=== PATIENT | female | born 1985 | race Hispanic/Latino ===

== ENCOUNTER 2017-03-10 12:07 | Emergency (ER) | payer BC ==
[2017-03-10 12:17] VITALS: BMI 17.6
[2017-03-10 12:24] VITALS: BP 113/74; PULSE 60; RESP 18; TEMP 98.2; O2SAT 99
--- NOTE | 2017-03-10 12:51 | C.PDOC ---
History Of Present Illness 32 y/o female presents to the ED for evaluation after she fell down the stairs this morning and bumped the back of her head. She reports that she fell down about 6 steps indoors. At the time of inciddent, patient states she felt a little dizzy with some head "pressure" which resolved and denies loss of consciousness. She notes that she went to work and she was working "slower than usual" so her job sent to ER for evaluation. Patient also notes she took a test two days ago that came back positive. She denies any neck pain, nausea, vomiting, abdominal pain, vaginal bleeding, chest pain, shortness of breath, or other complaints. Time Seen by Provider: 03/10/17 12:33 Chief Complaint (Nursing): Dizziness/Lightheaded History Per: Patient History/Exam Limitations: no limitations Onset/Duration Of Symptoms: Hrs Current Symptoms Are (Timing): Better Recent travel outside of the [place]: No Past Medical History Reviewed: Historical Data, Nursing Documentation, Vital Signs Vital Signs: Last Vital Signs Temp 98.2 F 03/10/17 12:17 Pulse 60 03/10/17 12:17 Resp 18 03/10/17 12:17 BP 113/74 03/10/17 12:17 Pulse Ox 99 03/10/17 13:34 - Medical History PMH: No Chronic Diseases Surgical History: Family History: States: Unknown Family Hx - Social History Hx Tobacco Use: No Hx Alcohol Use: No Hx Substance Use: No - Immunization History Hx Tetanus Toxoid Vaccination: No Hx Influenza Vaccination: No Hx Pneumococcal Vaccination: No Review Of Systems Constitutional: Negative for: Fever, Chills, Weakness, Malaise Eyes: Negative for: Vision Change Cardiovascular: Negative for: Chest Pain, Palpitations Respiratory: Negative for: Shortness of Breath Gastrointestinal: Negative for: Nausea, Vomiting, Abdominal Pain Genitourinary: Negative for: Vaginal Bleeding Musculoskeletal: Negative for: Neck Pain, Back Pain Neurological: Positive for: Dizziness. Negative for: Headache, Other (LOC) Physical Exam - Physical Exam Appears: Non-toxic, No Acute Distress Skin: Warm, Dry, No Ecchymosis Head: Atraumatic, Normacephalic, No Tenderness, No Swelling, No Abrasion, No Laceration, No Other (hematoma) Eye(s): bilateral: Normal Inspection, PERRL, EOMI, Other (no nystagmus) Ear(s): Bilateral: Normal Nose: Normal, No Epistaxis Oral Mucosa: Moist Throat: Normal Neck: Normal ROM, No Midline Cervical Tenderness, No Paracervical Tenderness, Supple Chest: Symmetrical, No Tenderness Cardiovascular: Rhythm Regular Respiratory: Normal Breath Sounds, No Rales, No Rhonchi, No Wheezing Gastrointestinal/Abdominal: Normal Exam, Soft, No Tenderness, No Distention, No Guarding Back: Normal Inspection, No CVA Tenderness, No Vertebral Tenderness, No Decreased ROM, No Paraspinal Tenderness Extremity: Normal ROM, No Tenderness, No Swelling Extremity: Bilateral: Atraumatic, Normal Color And Temperature Neurological/Psych: Oriented x3, Normal Speech, Normal Cognition, Normal Cranial Nerves (II-XII intact), Normal Motor, Normal Sensation Gait: Steady ED Course And Treatment O2 Sat by Pulse Oximetry: 99 (ra) Pulse Ox Interpretation: Normal Medical Decision Making Medical Decision Making: Impression: S.p fall and hit the back of her head. Normal neurological exam, and no laceration or other abnormality on on physical examination. Given the history and exam, CT not recommend. Patient has normal neurological exam and denies any headache, dizziness or other complaints. I discussed risks of CT and the likelyhood of finding abnormality requiring surgical intervention. Patient understands and expresses understanding by stating she would like to wait and see how she feels later. Patient declines offer for Tylenol as she states she does not have any pain at this time. Patient was advised that if she does experience pain Tylenol is safe to take with . Patient was advised of signs of concern to watch for and instructed to come to the ED for any new or concerning symptoms. Advised to follow up with physician/clinic for further evaluation. Disposition Counseled Patient/Family Regarding: Need For Followup, Rx Given - Disposition Disposition: HOME/ ROUTINE Disposition Time: 12:50 Condition: STABLE Additional Instructions: Take Tylenol for any pain you may have Recommend rest and fluids Return to ER if any alteration in behavior or mental status, severe headache, nausea, persistent vomiting, or loss of consciousness occurs. 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 - Scribe Statement The provider has reviewed the documentation as recorded by the Scribe (Anita Jordan) All medical record entries made by the Scribe were at my direction and personally dictated by me. I have reviewed the chart and agree that the record accurately reflects my personal performance of the history, physical exam, medical decision making, and the department course for this patient. I have also personally directed, reviewed, and agree with the discharge instructions and disposition.
== END 2017-03-10 13:05 | disposition home or self-care (01) ==
LOC: C.ER 12:07
DX: S09.90XA Unspecified injury of head, initial encounter (principal); W10.9XXA Fall (on) (from) unspecified stairs and steps, initial encounter; Y92.008 Other place in unspecified non-institutional (private) residence as the place of occurrence of the external cause

== ENCOUNTER 2017-03-19 11:41 | Emergency (ER) | payer BC ==
[2017-03-19 11:41] VITALS: BMI 17.6
[2017-03-19] MEDS ORDERED: Sodium Chloride 0.9% 1,000 ML IV STA (12:11)
[2017-03-19 12:44] LABS: BASO % 0.3 % (0.0-2.0); EOS % 0.5 % (0.0-4.0); HEMATOCRIT 39.1 % (34.0-47.0); LYMPH # 1.5 K/uL (1.0-4.3); LYMPH % 15.2 % (20.0-40.0); MEAN CELL VOLUME 87.9 fL (81.0-99.0); MEAN CORPUSCULAR HEMOGLOBIN 29.4 pg (27.0-31.0); MEAN CORPUSCULAR HGB CONC 33.5 g/dL (33.0-37.0); MEAN PLATELET VOLUME 9.6 fL (7.2-11.7); MONO # 0.4 K/uL (0.0-0.8); MONO % 4.3 % (0.0-10.0); RED CELL DISTRIBUTION WIDTH 13.1 % (11.5-14.5); WHITE BLOOD COUNT 9.7 K/uL (4.8-10.8)
[2017-03-19 12:52] LABS: CHLORIDE 102 mmol/L (98-107); POTASSIUM 3.3 mmol/L (3.6-5.2); SODIUM 138 mmol/L (132-148)
[2017-03-19 12:55] LABS: ALB/GLOB RATIO 1.3 (1.0-2.1); ALKALINE PHOSPHATASE 44 U/L (38-126); ALT/SGPT 16 U/L (9-52); AST/SGOT 14 U/L (14-36); BILIRUBIN,TOTAL 1.4 mg/dL (0.2-1.3); BLOOD UREA NITROGEN 15 mg/dL (7-17); CALCIUM 8.7 mg/dl (8.6-10.4); CARBON DIOXIDE 23 mmol/L (22-30); GFR AFRICAN-AMERICAN > 60; GLUCOSE,RANDOM 110 mg/dL (65-105); TOTAL PROTEIN 7.1 g/dL (6.3-8.3)
--- NOTE | 2017-03-19 14:22 | C.PDOC ---
History Of Present Illness 32-year-old female, presents to the emergency department with complaints of cramping abdominal pain and vaginal bleed since yesterday. Bleeding is described as spotting. Patient notes that she is about five-weeks (by date). Denies any other complaints at this time. Chief Complaint (Nursing): Female Genitourinary History Per: Patient History/Exam Limitations: no limitations Past Medical History Reviewed: Historical Data, Nursing Documentation, Vital Signs Vital Signs: Last Vital Signs Temp 98.0 F 03/19/17 18:25 Pulse 66 03/19/17 18:25 Resp 16 03/19/17 18:25 BP 115/72 03/19/17 18:25 Pulse Ox 99 03/19/17 18:25 Surgical History: Family History: States: Unknown Family Hx - Social History Hx Tobacco Use: No Hx Alcohol Use: No Hx Substance Use: No - Immunization History Hx Tetanus Toxoid Vaccination: No Hx Influenza Vaccination: No Hx Pneumococcal Vaccination: No Review Of Systems Except As Marked, All Systems Reviewed And Found Negative. Constitutional: Negative for: Fever, Chills Cardiovascular: Negative for: Chest Pain Gastrointestinal: Negative for: Nausea, Vomiting, Diarrhea Genitourinary: Positive for: Vaginal Bleeding, Pelvic Pain. Negative for: Vaginal Discharge Musculoskeletal: Negative for: Back Pain Skin: Negative for: Rash Physical Exam - Physical Exam Appears: Non-toxic, No Acute Distress Skin: Warm, Dry, No Rash Eye(s): bilateral: Normal Inspection Nose: Normal Oral Mucosa: Moist Lips: Normal Appearing Neck: Normal ROM Cardiovascular: Rhythm Regular Respiratory: No Accessory Muscle Use Gastrointestinal/Abdominal: Soft, Tenderness (mild, suprapubic), No Guarding, No Rebound Extremity: Normal ROM Neurological/Psych: Oriented x3, Normal Speech ED Course And Treatment - Laboratory Results Result Diagrams: 03/19/17 12:32 03/19/17 12:32 O2 Sat by Pulse Oximetry: 98 - CT Scan/US Pelvic US Other Rad Studies (CT/US): Read By Radiologist, Radiology Report Reviewed CT/US Interpretation: Accession No. : [id number]. Patient Name / ID : MELINDA PACE / [id number]. Exam Date : 03/19/2017 15:35:28 ( Approved ). Study Comment : Sex / Age : F / 32Y. Creator : Leanne Iniguez. Dictator : Leanne Iniguez. Perianesthesia Manager : Bottom Saw Operator : Leanne Iniguez. Approver2 : Report Date : 03/19/2017 17:42:49. My Comment : . HISTORY: / bleeding. COMPARISON: None available. TECHNIQUE: Transabdominal and endovaginal ultrasound examination of the pelvis was obtained. FINDINGS: LMP: 11/18/2017. UTERUS: Measures 9.4 x 5.7 x 6.9 cm. Normal in size and appearance. No fibroid or other mass lesion seen. ENDOMETRIUM: There is cystic structure at the endometrium likely represent gestational sac measures 1.6 x 0.7 x 1.6 centimeter which corresponding to gestational age of 5 weeks 4 days. There is yolk sac seen. CERVIX: No cervical abnormality identified. RIGHT OVARY: Measures 3.3 x 1.5 x 3.4 cm. No solid mass. Normal flow. LEFT OVARY: Measures 2.5 x 2.3 x 3.3 cm. No solid mass. Normal flow. FREE FLUID: No significant free fluid noted. OTHER FINDINGS: None. IMPRESSION: Intrauterine gestational sac contains yolk sac. No evidence of pole or heart activity. Correlation with beta HCG level and if indicated close follow-up reassessment is suggested. Unremarkable ovaries. Progress Note: Plan: Type and Screen. BetaHCG/CMP. IVF. US: Pelvis US. Patient was d/c home, instructed to return to ED in 2 days to repeat beta HCG and pelvic US. Reassess and Disposition Disposition - Disposition Disposition: HOME/ ROUTINE Disposition Time: 18:11 Condition: STABLE Additional Instructions: Follow up with OBGYN within 1-2 days. Return to ED immediately if feel worse. Return to Ed in 2 days to repeat Beta HCG and pelvic US. Instructions: First Trimester Vaginal Bleed (ED) Forms: Work/School/Gym Excuse - Clinical Impression Clinical Impression: Vaginal bleeding during , antepartum - Scribe Statement The provider has reviewed the documentation as recorded by the Toyin Zambrano All medical record entries made by the Toyin were at my direction and personally dictated by me. I have reviewed the chart and agree that the record accurately reflects my personal performance of the history, physical exam, medical decision making, and the department course for this patient. I have also personally directed, reviewed, and agree with the discharge instructions and disposition.
--- NOTE | 2017-03-19 17:44 | US ---
HISTORY: /bleeding COMPARISON: None available. TECHNIQUE: Transabdominal and endovaginal ultrasound examination of the pelvis was obtained. FINDINGS: LMP: 11/18/2017 UTERUS: Measures 9.4 x 5.7 x 6.9 cm. Normal in size and appearance. No fibroid or other mass lesion seen. ENDOMETRIUM: There is cystic structure at the endometrium likely represent gestational sac measures 1.6 x 0.7 x 1.6 centimeter which corresponding to gestational age of 5 weeks 4 days. There is yolk sac seen CERVIX: No cervical abnormality identified. RIGHT OVARY: Measures 3.3 x 1.5 x 3.4 cm. No solid mass. Normal flow. LEFT OVARY: Measures 2.5 x 2.3 x 3.3 cm. No solid mass. Normal flow. FREE FLUID: No significant free fluid noted. OTHER FINDINGS: None. IMPRESSION: Intrauterine gestational sac contains yolk sac. No evidence of pole or heart activity. Correlation with beta HCG level and if indicated close follow-up reassessment is suggested. Unremarkable ovaries.
[2017-03-19 18:26] VITALS: BP 115/72; PULSE 66; RESP 16; TEMP 98
[2017-03-19 18:53] VITALS: O2SAT 98
== END 2017-03-19 18:26 | disposition home or self-care (01) ==
LOC: C.ER 11:41
DX: O20.8 Other hemorrhage in early pregnancy (principal); Z3A.01 Less than 8 weeks gestation of pregnancy
CPT/HCPCS: 76805; 76817; 80053; 84702; 85025; 86850; 86900; 96360; 99284; J7040

== ENCOUNTER 2017-03-21 09:30 | Emergency (ER) | payer BC ==
[2017-03-21 09:30] VITALS: BMI 17.6
[2017-03-21 09:34] VITALS: O2SAT 100
--- NOTE | 2017-03-21 10:59 | C.PDOC ---
History Of Present Illness Patient is a 32 y/o female, 5 weeks , that presents to the ED for repeat betaHCG. Patient was seen on 03/19/17 for vaginal bleeding, and had ultrasound done that showed intrauterine gestational sac, but no FHR. Patient states vaginal bleeding is now mild, with only light spotting. Also notes occasional crampy abdominal pain. Otherwise, denies any n/v/d, fever, chills, urinary symptoms, or any other associated symptoms at this time. Time Seen by Provider: 03/21/17 09:37 Chief Complaint (Nursing): Female Genitourinary History Per: Patient History/Exam Limitations: no limitations Onset/Duration Of Symptoms: Days Current Symptoms Are (Timing): Still Present Quality Of Discomfort: Cramping Alleviating Factors: None Recent travel outside of the [place]: No Additional History Per: Patient Abnormal Vaginal Bleeding: Yes Last Menstral Period: 02/16/17 Past Medical History Reviewed: Historical Data, Nursing Documentation, Vital Signs Vital Signs: Last Vital Signs Temp 98.2 F 03/21/17 14:57 Pulse 65 03/21/17 14:57 Resp 16 03/21/17 14:57 BP 110/75 03/21/17 14:57 Pulse Ox 100 03/21/17 14:57 Surgical History: Family History: States: Unknown Family Hx - Social History Hx Tobacco Use: No Hx Alcohol Use: No Hx Substance Use: No - Immunization History Hx Tetanus Toxoid Vaccination: No Hx Influenza Vaccination: No Hx Pneumococcal Vaccination: No Review Of Systems Except As Marked, All Systems Reviewed And Found Negative. Constitutional: Negative for: Fever, Chills Gastrointestinal: Positive for: Abdominal Pain. Negative for: Nausea, Vomiting , Diarrhea Genitourinary: Positive for: Vaginal Bleeding (light spotting). Negative for: Dysuria, Frequency, Hematuria Musculoskeletal: Negative for: Back Pain Physical Exam - Physical Exam Appears: Non-toxic, No Acute Distress Skin: Normal Color, Warm, Dry Head: Atraumatic, Normacephalic Chest: Symmetrical Cardiovascular: Rhythm Regular Respiratory: Normal Breath Sounds, No Rales, No Rhonchi, No Wheezing Gastrointestinal/Abdominal: Soft, No Tenderness, No Guarding, No Rebound Neurological/Psych: Oriented x3, Normal Speech, Normal Cognition ED Course And Treatment O2 Sat by Pulse Oximetry: 100 (on RA) Pulse Ox Interpretation: Normal - CT Scan/US Preg US Other Rad Studies (CT/US): Read By Radiologist, Radiology Report Reviewed CT/US Interpretation: Findings: The uterus measures approximately 8.2 x 5.7 x 6.4 cm. Anteverted. Cervix length measures approximately 3.3 cm. Nabothian cyst. There is a single intrauterine fetus present. The gestational sac measures 1.5 cm and is compatible with a gestational age of 5 weeks 5 days. The crown-rump length measures 0.5 cm and is compatible with a gestational age of 6 weeks 1 day. Evidence of flickering heart however heart rate could not be obtained. The right ovary measures 2.7 x 1.7 x 1.9 cm. The left ovary measures 3.2 x 2.1 x 2.1 and contains evidence of 1.5 x 1.3 x 1.5 cm corpus luteal cyst. Blood flow was demonstrated to both ovaries. Impression: Intrauterine with estimated gestational age 5 weeks 5 days by gestational sac calculation and 6 weeks 1 day by crown-rump length calculation. Evidence of flickering heart however heart rate could not be obtained on this study, presumably due to early stage of . Recommend correlation with quantitative beta HCG, COLOR PASTE MIXING SUPERVISOR follow-up, and short-term repeat ultrasound. Probable 1.5 cm left corpus luteal cyst. Advise an anomaly screen at 16-18 weeks gestational age Progress Note: Beta HCG ordered and reviewed. Medical Decision Making Medical Decision Makin32 y/o female with vaginal bleeding and ; repeat bhcg is rising and pt now has flickering heartbeat on songram. will d/c with outpatient pottery machine operator. Disposition - Disposition Disposition: HOME/ ROUTINE Disposition Time: 14:48 Condition: STABLE Additional Instructions: Follow up with your hand drawer in helper as soon as possible. Pelvic rest- nothing in vagina. Return to ER for any worsening symptoms, abdominal pain, lightheadedness, fainting, or any other concerns. Instructions: Threatened Miscarriage (ED) Forms: General Discharge Instructions Print Language: THAI - Clinical Impression Clinical Impression: Threatened - PA / EXTERMINATION INSPECTOR / Resident Statement MD/DO has reviewed & agrees with the documentation as recorded. - Scribe Statement The provider has reviewed the documentation as recorded by the Scribe Natalie Yang All medical record entries made by the Herminioibtravis were at my direction and personally dictated by me. I have reviewed the chart and agree that the record accurately reflects my personal performance of the history, physical exam, medical decision making, and the department course for this patient. I have also personally directed, reviewed, and agree with the discharge instructions and disposition.
--- NOTE | 2017-03-21 14:15 | US ---
Indication: with vaginal bleeding Comparison: 1st trimester ultrasound performed 03/19/17 Technique: Real-time transabdominal pelvic ultrasound was performed. In addition a transvaginal pelvic ultrasound was necessary to better depict pelvic anatomy Findings: The uterus measures approximately 8.2 x 5.7 x 6.4 cm. Anteverted. Cervix length measures approximately 3.3 cm. Nabothian cyst. There is a single intrauterine fetus present. The gestational sac measures 1.5 cm and is compatible with a gestational age of 5 weeks 5 days. The crown-rump length measures 0.5 cm and is compatible with a gestational age of 6 weeks 1 day. Evidence of flickering heart however heart rate could not be obtained. The right ovary measures 2.7 x 1.7 x 1.9 cm. The left ovary measures 3.2 x 2.1 x 2.1 and contains evidence of 1.5 x 1.3 x 1.5 cm corpus luteal cyst. Blood flow was demonstrated to both ovaries. Impression: Intrauterine with estimated gestational age 5 weeks 5 days by gestational sac calculation and 6 weeks 1 day by crown-rump length calculation. Evidence of flickering heart however heart rate could not be obtained on this study, presumably due to early stage of . Recommend correlation with quantitative beta HCG, ASPHALT PAVER OPERATOR follow-up, and short-term repeat ultrasound. Probable 1.5 cm left corpus luteal cyst. Advise an anomaly screen at 16-18 weeks gestational age
[2017-03-21 14:59] VITALS: BP 110/75; PULSE 65; RESP 16; TEMP 98.2
== END 2017-03-21 14:57 | disposition home or self-care (01) ==
LOC: C.ER 09:30
DX: O20.0 Threatened abortion (principal); Z3A.01 Less than 8 weeks gestation of pregnancy

== ENCOUNTER 2018-02-14 15:25 | Emergency (ER) | payer BC, MEDICAID ==
[2018-02-14 15:25] VITALS: BMI 17.6
[2018-02-14 15:31] VITALS: BP 129/83; PULSE 70; RESP 18; TEMP 97.9; O2SAT 100
--- NOTE | 2018-02-14 16:14 | C.PDOC ---
History Of Present Illness 33 y/o female presents to the ER for evaluation after she cut the corner of her right eye with a binder. Patient states that the binder did not strike her in the eye itself. She was concerned so she decided to come to the ER. Of note, Tetanus is UTD. Time Seen by Provider: 02/14/18 15:39 Chief Complaint (Nursing): Eye Problem History Per: Patient History/Exam Limitations: no limitations Onset/Duration Of Symptoms: Hrs Current Symptoms Are (Timing): Still Present Severity: Moderate Past Medical History Reviewed: Historical Data, Nursing Documentation, Vital Signs Vital Signs: Last Vital Signs Temp 97.9 F 02/14/18 15:27 Pulse 70 02/14/18 15:27 Resp 18 02/14/18 15:27 BP 129/83 02/14/18 15:27 Pulse Ox 100 02/14/18 16:28 - Medical History PMH: No Chronic Diseases Surgical History: Family History: States: No Known Family Hx - Social History Hx Tobacco Use: No Hx Alcohol Use: No Hx Substance Use: No - Immunization History Hx Tetanus Toxoid Vaccination: No Hx Influenza Vaccination: No Hx Pneumococcal Vaccination: No Review Of Systems Except As Marked, All Systems Reviewed And Found Negative. Constitutional: Negative for: Fever, Chills Eyes: Positive for: Pain (right eye ) Physical Exam - Physical Exam Appears: Non-toxic, No Acute Distress Skin: Normal Color, Warm, Dry Head: Atraumatic, Normacephalic Eye(s): left: Normal Inspection, Other (0.5 cm laceration to the lateral aspect of right eye) Neck: Supple Chest: Symmetrical Cardiovascular: Rhythm Regular Respiratory: Normal Breath Sounds, No Rales, No Rhonchi, No Wheezing Neurological/Psych: Oriented x3, Normal Speech, Normal Motor, Normal Sensation ED Course And Treatment O2 Sat by Pulse Oximetry: 100 (RA) Pulse Ox Interpretation: Normal Medical Decision Making Medical Decision Making: refusing florcein exam/eye exam, only wants evval for laceration - laceration well approx. steri strip applied cleaned. advise outpt fu Disposition - Disposition Referrals: [employer] [Outside] [facility] [Outside] Disposition: HOME/ ROUTINE Disposition Time: 05:00 Condition: STABLE Additional Instructions: return to er with worsening symptoms or concerns. Instructions: Wound Care (DC) Forms: [employer] (Sami) - Clinical Impression Clinical Impression: Laceration - Scribe Statement The provider has reviewed the documentation as recorded by the Herminioibtravis Gandhi Provider Attestation: All medical record entries made by the Scribe were at my direction and personally dictated by me. I have reviewed the chart and agree that the record accurately reflects my personal performance of the history, physical exam, medical decision making, and the department course for this patient. I have also personally directed, reviewed, and agree with the discharge instructions and disposition.
== END 2018-02-14 16:18 | disposition home or self-care (01) ==
LOC: C.ER 15:25
DX: S05.31XA Ocular laceration without prolapse or loss of intraocular tissue, right eye, initial encounter (principal); W45.8XXA Other foreign body or object entering through skin, initial encounter